=== PATIENT | male | born 1995 | race Two or more races ===

== ENCOUNTER 2020-07-13 10:51 | Emergency (ER) | payer MEDICAID, OTHER ==
[~2020-07-13] VITALS: Ht 185.4 cm; Wt 140.6 kg
[~2020-07-13 10:51] MED LIST: TRAM50TA2 PO
[2020-07-13 12:25] VITALS: BP 133/74
== END 2020-07-13 12:31 | disposition home or self-care (01) ==
LOC: ER 10:51
DX: K13.79 Other lesions of oral mucosa (principal); K08.89 Other specified disorders of teeth and supporting structures

== ENCOUNTER → 2020-11-22 | Emergency (ER) | payer OTHER | END | disposition left against medical advice (07) | LOC: ER 20:58 | DX: K08.89 Other specified disorders of teeth and supporting structures (principal); Z53.21 Procedure and treatment not carried out due to patient leaving prior to being seen by health care provider ==

== ENCOUNTER 2021-11-01 12:41 | Emergency (ER) | payer OTHER ==
[~2021-11-01] VITALS: Ht 182.9 cm; Wt 156.5 kg
[2021-11-01 13:01] VITALS: BP 133/91
[2021-11-01] MEDS ORDERED: CLINDAMYCIN 900MG IV 50 ML IV ONE (15:45)
== END 2021-11-01 17:21 | disposition home or self-care (01) ==
LOC: ER 12:41
DX: K04.7 Periapical abscess without sinus (principal); Z79.899 Other long term (current) drug therapy
CPT/HCPCS: 96374; 99283; J3490; 96365